=== PATIENT | male | born 1960 ===

== ENCOUNTER 2024-11-11 13:00 | Outpatient (AMB) | payer MEDICARE, SELFPAY ==
[2024-11-11 13:14] VITALS: BP 111/69; PULSE 54; RESP 16; TEMP 36.6; O2SAT 97; BMI 35.1
--- NOTE | 2024-11-11 13:14 | A.OFFPC_ITS ---
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 Automatic Required: No Accompanied by: Self / Same As Patient Allergies No Known Allergies Allergy (Verified 11/11/24 13:16) Tobacco use date assessed: 11/11/24 Fall risk assessment: No Falls in past year Last assessed Fall Risk: 11/11/24 Dental Screening Dental Screen Date: 11/11/24 Did you have a dental visit in the last 12 months?: Yes Did you have a dental problem in the last 6 months where you did not have access to dental care?: No Was dental information given to patient?: Patient has dentist HPI HPI Comments History of Present Illness Details History of Present Illness The patient is a 64-year-old male presenting for a physical examination and to establish care. Arthritis: - The patient reports significant arthri tis affecting the left elbow and knee, with pain impacting daily activities such as wiping a counter. 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 - Previous imaging suggested moderate ar thritis, and physical therapy was recommended but not yet pursued. Lipoma: - The patient has a history of multiple lipomas, some of which are painful, particularly on the left arm. - He has undergone previous surgical rem oval of lipomas, and there is a family history of the condition. Eczema: - The patient reports itchy forearms, wh ich he suspects may be eczema, and has been advised to use prescribed cream. Chest Pain: - The patient experienced chest pain and tightness, which has improved following a 20-pound weight loss over the past three months. - A previous DOT physical suggested a ca rdiology evaluation, but this has not yet been completed. Obesity: - The patient has a BMI of 35.1, classif chandni him as having class 2 obesity. - He acknowledges the need for dietary c hanges and has been referred to a cargo inspector. Depression: - The patient reports long-standing depr ession, possibly linked to loneliness, and has declined medication in favor of therapy. Benign Prostatic Hyperplasia: - The patient reports nocturia and weak urinary stream, suggestive of benign prostatic hyperplasia. Review of Systems - Musculoskeletal: Reports arthritis-rel ated pain in the left elbow and knee. - Dermatological: Reports itchy forearms , suspected eczema. - Cardiovascular: Reports previous chest pain and tightness, improved with weight loss. - Genitourinary: Reports nocturia and we ak urinary stream. - Psychological: Reports long-standing d epression, possibly linked to loneliness. 10-point ROS reviewed and negative excep t as noted in HPI Past Medical History - Arthritis: Significant arthritis affec ting the left elbow and knee. - Lipoma: History of multiple lipomas, s ome painful, with previous surgical removal. - Eczema: Reports itchy forearms, suspec grant eczema. - Depression: Long-standing depression, possibly linked to loneliness. Health Maintenance - Colonoscopy referral for colorectal ca ncer screening. - Manager Long Term Care referral for dietary gomez gement and obesity. - Behavioral health referral for depress ion management. Physical Exam General: Well-appearing, in no acute distress. Vital signs: Blood pressure looks good. Pulse looks good. HEENT: Normocephalic, atraumatic. PERRLA, EOMI. Conjunctiva clear, sclera anicteric. Oropharynx clear, mucous membranes moist. TMs intact bilaterally. Neck: Supple, no lymphadenopathy, no thyromegaly, no JVD or carotid bruits. Cardiovascular: RRR, normal S1/S2, no murmurs, rubs, or gallops. Peripheral pulses 2+ and symmetric. No edema. Respiratory: Lungs clear to auscultation bilaterally, no wheezes, rales, or rhonchi. Normal effort. Abdomen: Soft, non-tender, non-distended. Normoactive bowel sounds. No hepatosplenomegaly, no masses. MSK: Full range of motion, no joint swelling or deformity. Normal gait. Pain in left elbow, moderate arthritis suspected. Skin: Warm, dry, intact. No rashes, lesions, or pallor. Eczema noted on left arm. Multiple lipomas present, some painful. Neuro: Alert and oriented x3. Cranial nerves II-XII intact. Strength 5/5 throughout. Sensation intact. Reflexes 2+ symmetric. Normal coordination and gait. Psych: Appropriate mood and affect. Normal judgment and insight. Reports long- term depression, possibly due to loneliness. Plan 1. Arthritis - Referral to physical therapy for manag ement of arthritis-related pain in the left elbow and knee. 2. Lipoma - Referral to general surgery for evalua tion and potential removal of painful lipomas. 3. Eczema - Prescription of topical cream for gomez gement of eczema on the forearms. 4. Chest Pain - Electrocardiogram ordered to assess ca rdiac function due to previous chest pain and tightness. 5. Obesity - Referral to a cargo inspector for dietary management and weight loss strategies. 6. Depression - Referral to behavioral health for ther apy to address long-standing depression. 7. Benign Prostatic Hyperplasia - Laboratory tests ordered to evaluate u rinary symptoms suggestive of benign prostatic hyperplasia. Discussion Notes During the visit, I discussed with the patient the importance of addressing his arthritis through physical therapy and the potential need for surgical evaluation of his painful lipomas. We also talked about the necessity of managing his obesity with the help of a cargo inspector and addressing his depression through behavioral health services. I emphasized the importance of following up on his chest pain with an electrocardiogram and considering further evaluation for his urinary symptoms. The patient was informed about the colonoscopy referral for colorectal cancer screening and the need for regular health maintenance checks. Patient was informed and verbally consented to the use of an ambient scribe for clinic note documentation during this visit. Patient Instructions - Follow up with physical therapy for ar thritis management. - Attend the scheduled appointment with the general surgeon for lipoma evaluation. - Use the prescribed cream for eczema as directed. - Complete the electrocardiogram as orde red to assess heart health. - Meet with the cargo inspector to discuss dietary changes for weight management. - Engage with behavioral health services for support with depression. - Follow up on laboratory tests for urin martha symptoms. - Attend the colonoscopy appointment for colorectal cancer screening. [facility] Medical History (Updated 11/11/24 @ 13:47 by Quinten Tirado MD) Eczema Pain Lipoma Family History (Updated 11/11/24 @ 13:18 by Ken Vela MA) Father No problems noted. Mother Heart problem Social History Housing: House Alcohol intake: current Alcohol intake frequency: holidays/special occasions only Patient Tobacco Use Status: Never used Tobacco service: No Current occupational status: employed and retired Cognitive needs: No Hearing needs: No Vision needs: Yes (reading ) Questionnaire PHQ-9 Over the last 2 weeks, how often have you been bothered by any of the following problems? 1. Little interest or pleasure in doing things: several days 2. Feeling down, depressed, or hopeless: more than half the days 3. Trouble falling or staying asleep, or sleeping too much: not at all 4. Feeling tired or having little energy: nearly every day 5. Poor appetite or overeating: nearly every day 6. Feeling bad about yourself - or that you are a failure or have let yourself or your family down: more than half the days 7. Trouble concentrating on things, such as reading the newspaper or watching television: several days 8. Moving or speaking so slowly that other people could have noticed. Or the opposite - being so fidgety or restless that you have been moving around a lot more than usual: not at all 9. Thoughts that you would be better off or of hurting yourself in some way: several days Total score: 13 Source: Developed by Drs. Cipriano Bragg, Nikkie Hadley, Heath Shah and colleagues, with an educational laura from [employer]. Thrive Questionnaire Date Thrive assessed: 11/08/24 I am a: Patient What is your living situation today?: I have a place to live, but I am worried about losing it in the future Within the past 12 months, did the food you bought not last and you didn't have the money to get more?: Sometimes True Within the past 12 months, did you worry whether your food would run out before you got money to buy more?: Often true Do you have trouble paying for medicines?: Yes Do you have trouble getting transportation to medical appointments?: No Do you have trouble paying your heating and electricity bill?: Yes Do you have trouble taking care of your child, family member or friend?: Yes Do you have trouble with day-to-day activities such as bathing, preparing meals, shopping, managing finances, etc.?: Yes Are you currently unemployed and looking for a job?: I choose not to answer this question Are you interested in more education?: No Please select the resources that you would like help with: Food, Paying for medicine and Utilities Currently or been in a relationship where the following occur: No concerns reported THRIVE Score: 4 AUDIT C Alcohol Use Questionnaire (AUDIT-C) 1. How often do you have a drink containing alcohol?: Never 2. How many drinks containing alcohol do you have on a typical day when you are drinking?: 1 or 2 3. How often do you have six or more drinks on one occasion?: Never Total Score: 0 WILFRIDO-7 AMB Questionnaire WILFRIDO-7 Feeling nervous, anxious, or on edge: 2 = More than half the days Not being able to stop or control worryin = More than half the days Worrying too much about different things: 2 = More than half the days Trouble relaxin = More than half the days Being so restless that it is hard to sit still: 2 = More than half the days Becoming easily annoyed or irritable: 0 = Not at all Feeling afraid as if something awful might happen: 1 = Several days Total WILFRIDO-7 score (0-4 normal; 5-9 mild; 10-14 moderate; 15-21 severe): 11 Source: Developed by Drs. Cipriano Bragg, Nikkie Hadley, Heath Shah and colleagues, with an educational laura from [employer]. Physical exam (Primary Care) Vital Signs: Last Vital Signs Resp 16 11/11/24 13:14 BMI result Body Mass Index 35.1 Thrive Assessment: Date of Thrive Assessment Date Thrive assessed 11/08/24 11/08/24 12:15 Currently or been in a relationship where the following occur: No concerns reported Coding Level of Care Code New Pt Level 3 (99509) Diagnoses Encounter to establish care Z76.89 Encounter for screening, unspecified Z13.9 Counseling, unspecified Z71.9 Class 2 obesity E66.812 Adjustment disorder with depressed mood F43.21 Lipoma D17.9 Pain R52 Eczema L30.9 Screening for diabetes mellitus Z13.1 Screening for lipoid disorders Z13.220 Screening for depression 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.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 Hypertension screen Z13.6 Screening for HIV (human immunodeficiency virus) Z11.4 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 Arthritis of left elbow M19.022 Difficulty urinating R39.198 Chest pain R07.9 Assessment & Plan Assessment & Plan (1) Encounter to establish care: Code(s): Z76.89 - Persons encountering health services in other specified circumstances (2) Encounter for screening, unspecified: Code(s): Z13.9 - Encounter for screening, unspecified (3) Counseling, unspecified: Code(s): Z71.9 - Counseling, unspecified (4) Class 2 obesity: Code(s): E66.812 - Obesity, class 2 (5) Adjustment disorder with depressed mood: Code(s): F43.21 - Adjustment disorder with depressed mood (6) Lipoma: Code(s): D17.9 - Benign lipomatous neoplasm, unspecified Category: Medical (7) Pain: Code(s): R52 - Pain, unspecified Category: Medical (8) Eczema: Code(s): L30.9 - Dermatitis, unspecified Category: Medical (9) Screening for diabetes mellitus: Code(s): Z13.1 - Encounter for screening for diabetes mellitus (10) Screening for lipoid disorders: Code(s): Z13.220 - Encounter for screening for lipoid disorders (11) Screening for depression: Code(s): Z13.31 - Encounter for screening for depression (12) Congenital melanocytic nevus: Code(s): D22.9 - Melanocytic nevi, unspecified (13) Hypertension screen: Code(s): Z13.6 - Encounter for screening for cardiovascular disorders (14) Screening for HIV (human immunodeficiency virus): Code(s): Z11.4 - Encounter for screening for human immunodeficiency virus [HIV] (15) Zhou hemangioma: Code(s): D18.01 - Hemangioma of skin and subcutaneous tissue (16) Arthritis of left elbow: Code(s): M19.022 - Primary osteoarthritis, left elbow (17) Difficulty urinating: Code(s): R39.198 - Other difficulties with micturition (18) Chest pain: Code(s): R07.9 - Chest pain, unspecified Plan Orders: Orders Comprehensive Met. Panel Today Z13.9 - Encounter for screening, unspecified, Z71.9 - Counseling, unspecified, Z76.89 - Persons encountering health services in other specified circumstances Hemoglobin A1c Today Z13.9 - Encounter for screening, unspecified, Z71.9 - Counseling, unspecified, Z76.89 - Persons encountering health services in other specified circumstances Hepatitis C Antibody Today Z13.9 - Encounter for screening, unspecified, Z71.9 - Counseling, unspecified, Z76.89 - Persons encountering health services in other specified circumstances Syphilis Screen Today Z13.9 - Encounter for screening, unspecified, Z71.9 - Counseling, unspecified, Z76.89 - Persons encountering health services in other specified circumstances Complete Blood Count Auto Diff Today Z13.9 - Encounter for screening, unspecified, Z71.9 - Counseling, unspecified, Z76.89 - Persons encountering health services in other specified circumstances Hepatitis B Surface Antibody Today Z13.9 - Encounter for screening, unspecified, Z71.9 - Counseling, unspecified, Z76.89 - Persons encountering health services in other specified circumstances Hepatitis B Surface Antigen Today Z13.9 - Encounter for screening, unspecified, Z71.9 - Counseling, unspecified, Z76.89 - Persons encountering health services in other specified circumstances HIV Ab/Ag Today Z13.9 - Encounter for screening, unspecified, Z71.9 - Counseling, unspecified, Z76.89 - Persons encountering health services in other specified circumstances Lipid Panel Today Z13.9 - Encounter for screening, unspecified, Z71.9 - Counseling, unspecified, Z76.89 - Persons encountering health services in other specified circumstances Magnesium Today Z13.9 - Encounter for screening, unspecified, Z71.9 - Counseling, unspecified, Z76.89 - Persons encountering health services in other specified circumstances UA CC w/rflx Micro + Cult Today Z13.9 - Encounter for screening, unspecified, Z71.9 - Counseling, unspecified, Z76.89 - Persons encountering health services i n other specified circumstances Vitamin B12 and Folate Today Z13.9 - Encounter for screening, unspecified, Z71.9 - Counseling, unspecified, Z76.89 - Persons encountering health services in other specified circumstances Vitamin D 1,25 dihydroxy Today Z13.9 - Encounter for screening, unspecified, Z71.9 - Counseling, unspecified, Z76.89 - Persons encountering health services in other specified circumstances ECG 12 lead EKG Today R07.9 - Chest pain, unspecified US Extremity Nonvas Limited LT Today D17.9 - Benign lipomatous neoplasm, unspecified, R52 - Pain, unspecified Referrals Open Access Screening Colonoscopy Referral Z12.11 - Encounter for screening for malignant neoplasm of colon, Z12.12 - Encounter for screening for malignant neoplasm of rectum Nurse Navigator Referral E66.812 - Obesity, class 2, F43.21 - Adjustment disorder with depressed mood Behavioral Health Referral F43.21 - Adjustment disorder with depressed mood General Surgery Referral D17.9 - Benign lipomatous neoplasm, unspecified, R52 - Pain, unspecified Medications: New triamcinolone acetonide 0.1% 1 appl topical BID 80 grams 0RF L30.9 - Dermatitis, unspecified
--- OUTSIDE RECORDS SUMMARY | 2024-11-11 14:29 | XMS_ITS | Clinical Summary ---
Author Organization [address] Address [address] [place] [phone] Phone Care Team Providers Care Yarder Boss Name Role Phone Marquis Russell MD Primary Care Provider [phone] Social History Tobacco Use Types Packs/Day Years Used Date Smoking Tobacco: Never Assessed Sex and Gender Information Value Date Recorded Sex Assigned at Not on file Legal Sex Male 6:31 PM EST Gender Identity Not on file Sexual Orientation Not on file Plan of Treatment Health Maintenance Due Date Last Done Comments HIV screening 1971 Hepatitis C screening 01/10/1976 Tetanus adult (Td q 10,TDAP once) 1978 Lipid disorder screening 1998 Colon cancer screening, Colonoscopy 2003 Diabetes screening 2003 Pneumococcal Vaccine (50+ ye ars) (1 of 1 - PCV) 01/10/2008 Shingles vaccine (Shingrix) (1 of 2 - Shingrix (RZV) 2 Dose Standard Series) 01/10/2008 Influenza vaccine 09/10/2024 Covid-19 vaccine series (2 - season) 2024 06/17/2020 RSV Immunization (1 - 1-dose 75+ series) 2033 Meningococcal B Vaccine Aged Out No l onger eligible based on patient's age to complete this topic Meningococcal Vaccine Aged Out No siena maryam eligible based on patient's age to complete this topic Insurance [employer] [address] [place] [address] [address] [id number] Care Teams Yarder Boss Relationship Specialty Start Date End Date Marquis Russell MD [address] [place] [phone] PCP - General 06/29/15
--- OUTSIDE RECORDS SUMMARY | 2024-11-11 14:29 | XMS_ITS | Clinical Summary ---
Author Organization [facility] Address [address] [place] [address] Care Team Providers Care Decatizer Name Role Phone Pcp, No Unavailable Unavailable Percy Messer Primary Care Provider Allergies No known active allergies Medications ibuprofen (MOTRIN) 600 MG tablet Take 1 tablet (600 mg total) by mouth 4 times daily (every 6 hours) as needed for mild pain or moderate pain. With food 20 tablet 01/04/2022 Active Active Problems Problem Noted Date Diagnosed Date Complex tear of medial menis cus, current injury, left knee, sequela 03/16/2018 Immunizations Immunization Administration Dates Next Due Covid-19 Adenovirus Vaccine - Jolene 06/17/2020 Family History Medical History Relation Name Comments Heart disease Mother Relation Name Status Comments Father Mother Alive Social History Tobacco Use Types Packs/Day Years Used Date Smoking Tobacco: Never Smokeless Tobacco: Never Tobacco Cessation:Counseling Given: Not Answered Alcohol Use Standard Drinks/Week Comments Yes 0 (1 standard drink = 0.6 oz pur e alcohol) Sex and Gender Information Value Date Recorded Sex Assigned at Male 01/27/2023 1:09 PM EST Legal Sex Male 5:17 PM EDT Gender Identity Male 01/27/2023 1:09 PM EST Sexual Orientation Heterosexual (straight) 01/27 1:09 PM EST Last Filed Vital Signs Vital Sign Reading Time Taken Comments Blood Pressure 125/84 01/27/2023 12:18 PM EST Pulse 70 01/27/2023 12:18 PM EST Temperature 36.9 C (98.5 F) 01/27/2023 12:18 PM EST Respiratory Rate 16 01/27/2023 12:18 PM EST Oxygen Saturation 98% 01/27/2023 12:18 PM EST Inhaled Oxygen Concentration - - Weight 120 kg (265 lb) 01/27/2023 12:18 PM EST Height 182.9 cm (6') 01/27/2023 12:18 PM EST Body Mass Index 35.94 01/27/2023 12:18 PM EST Plan of Treatment Health Maintenance Due Date Last Done Comments Advance Care Planning 1960 Hepatitis C Virus Screening 1960 DTaP/Tdap/Td Vaccines (1 - Tdap) 1977 Colonoscopy 2003 Pneumococcal Vaccines 50+ (1 of 1 - PCV) 01/10/2008 Zoster (Shingles) Vaccine (1 of 2) 01/10/2008 Influenza Vaccine 09/10/2024 COVID-19 Vaccine (2 - 2024-2 6 season) 2024 06/17/2020 RSV Vaccine 60 years and old er and Patients (1 - 1-dose 75+ series) 2033 Hepatitis B Vaccines Aged Out No long er eligible based on patient's age to complete this topic Insurance MEDICARE PART A [facility] TPL (AUTO/LIABILITY) [employer] MGD MEDICARE [facility] WORKER'S COMP ONE CALL MEDICAL ONE CALL MEDICAL Care Teams Decatizer Relationship Specialty Start Date End Date Percy Messer PA PCP - General Internal Medicine 09/19/16 Pcp, No General Medicine 07/12/16
--- OUTSIDE RECORDS SUMMARY | 2024-11-11 14:29 | XMS_ITS | Encounter Summary ---
Author Organization [facility] Care Team Providers Care Seed Analysis Laboratory Assistant Name Role Phone Marquis Russell MD Primary Care Provider [phone] Encounter Details Date Type Department Care Team (Late st Contact Info) Description 07/10/2015 Abstract [facility] Primary Care [place] [address] [facility], [address] [place] [address] Provider, Historical . Social History Tobacco Use Types Packs/Day Years Used Date Smoking Tobacco: Never Assessed Sex and Gender Information Value Date Recorded Sex Assigned at Not on file Legal Sex Male 6:31 PM EST Gender Identity Not on file Sexual Orientation Not on file documented as of this encounter Plan of Treatment Not on file documented as of this encounter Visit Diagnoses Not on filedocumented in this encounter Care Teams Seed Analysis Laboratory Assistant Relationship Specialty Start Date End Date Marquis Russell MD [address] [place] [phone] PCP - General 06/29/15 documented as of this encounter
--- OUTSIDE RECORDS SUMMARY | 2024-11-11 14:29 | XMS_ITS | Encounter Summary ---
Author Organization [facility] Address [address] [place] [address] Care Team Providers Care Bridge Gang Worker Name Role Phone Pcp, No Unavailable Unavailable Percy Messer Primary Care Provider [phone] Encounter Details Date Type Department Care Team (Late st Contact Info) Description 01/26/2018 Scanned Document [address] [phone] Percy Messer PA [address] [place] [address] Social History Tobacco Use Types Packs/Day Years Used Date Smoking Tobacco: Never Assessed Sex and Gender Information Value Date Recorded Sex Assigned at Male 01/27/2023 1:09 PM EST Legal Sex Male 5:17 PM EDT Gender Identity Male 01/27/2023 1:09 PM EST Sexual Orientation Heterosexual (straight) 01/27 1:09 PM EST documented as of this encounter Plan of Treatment Not on file documented as of this encounter Visit Diagnoses Not on filedocumented in this encounter Care Teams Bridge Gang Worker Relationship Specialty Start Date End Date Percy Messer PA PCP - General Internal Medicine 09/19/16 Pcp, No General Medicine 07/12/16 documented as of this encounter
--- OUTSIDE RECORDS SUMMARY | 2024-11-11 14:29 | XMS_ITS ---
Author Name [facility] Organization Unknown History of Medication Use Medication Directions Dispensed Refills Start Date End Date Stat us ibuprofen (MOTRIN) 600 MG tablet Take 1 tablet (600 mg total) by mouth 4 times daily (every 6 hours) as needed for mild pain or moderate pain. With food 01/04/2022 active Problems Problem Status Onset Date Problem Type Date of Resoluti on Source Other chest pain active EncounterDiagnosisAct [facility] Complex tear of medial meniscus, current injury, left knee, sequela active 2018-03-16 ProblemAct [facility] Immunizations Vaccine Date Source Lot Number Status Covid-19 Adenovirus Vaccine - Jolene 06/17/2020 [facility] [id number] completed Encounters Encounter Type Encounter Reason Primary Diagnosis Location Date Ambulatory [facility] 09/05/2024 Ambulatory [facility] 08/25/2024 Ambulatory [facility] 08/24/2024 Ambulatory [facility] 08/24/2024 Ambulatory [facility] 08/24/2024 Ambulatory [facility] 08/24/2024 Ambulatory [facility] 08/19/2024 Ambulatory [facility] 08/18/2024 Ambulatory [facility] 08/18/2024 Ambulatory [facility] 08/18/2024 Ambulatory [facility] 11/13/2023 Emergency Unspecified sprain of left elbow, initial encounter Unspecified sprain of left elbow, initial encounter [facility] 01/27/2023 Emergency Strain of left Achilles tendon, initial encounter [facility] 01/04/2022 Care Team Organization Name Specialty Phone Email Start Date End Da te [facility] 06/23/2024 025 [facility] 01/04/2022 [facility] 01/04/2022 01/05/20 22
== END 2024-11-11 13:51 | disposition home or self-care (01) ==
LOC: HO.HMCFMS 13:00
PROVIDERS: Visit Provider Student in an Organized Health Care Education/Training Program
DX: E66.812 Obesity, class 2 (principal); F43.21 Adjustment disorder with depressed mood; D17.9 Benign lipomatous neoplasm, unspecified; R52 Pain, unspecified; L30.9 Dermatitis, unspecified; D22.9 Melanocytic nevi, unspecified; D18.01 Hemangioma of skin and subcutaneous tissue; M19.022 Primary osteoarthritis, left elbow; R39.198 Other difficulties with micturition; R07.9 Chest pain, unspecified

== ENCOUNTER 2024-11-11 13:00 | Outpatient (REF) | payer MEDICARE, SELFPAY ==
[2024-11-11 17:42] LABS: MANUAL DIFF FLAG NO
[2024-11-11 17:48] LABS: Hematocrit 42.6 % (42.0-52.0); Hemoglobin 14.8 g/dl (14.0-18.0); Imm Gran Abs Auto 0.03 X10*3/uL (0.00-0.03); Imm Gran Pct Auto 0.4 % (0.0-0.4); Lymphocytes Absolute Auto 2.5 X10*3/uL (1.2-4.9); Mean Corpuscular HGB Conc 34.7 g/dl (31.0-36.0); Mean Corpuscular Hemoglobin 28.8 pg (27.0-33.0); Mean Corpuscular Volume 83.0 fL (80.0-98.0); NRBC Abs Auto 0.000 X10*3/uL (0.0-0.012); NRBC Pct Auto 0.0 /100WBC (0.0-0.2); Platelet Count 284 X10*3/uL (160-400); Red Blood Count 5.13 X10*6/uL (4.60-5.80); White Blood Count 8.0 X10*3/uL (4.8-10.8)
[2024-11-11 18:14] LABS: Alanine Aminotransferase 26 U/L (0-40); Albumin Level 4.6 g/dL (3.5-5.0); Alkaline Phosphatase 82 U/L (39-117); Anion Gap 12 (12-20); Appearance Urine Clear; Aspartate Amino Transferase 23 U/L (5-37); Blood Urea Nitrogen 25 mg/dL (9-16); Calcium 9.4 mg/dL (8.4-10.2); Carbon Dioxide 23 mmol/L (22-29); Chloride 109 mmol/L (96-108); Cholesterol 183 mg/dL (<200); Estimated Glomerular Filt Rate > 60; Glucose Urine UA Negative (Negative); HDL Cholesterol 38 mg/dL (>40); Magnesium 2.3 mg/dL (1.6-2.6); PH 5.5 (5.0-9.0); Potassium 4.2 mmol/L (3.3-5.1); Sodium 140 mmol/L (135-145); Specific Gravity - Urine 1.020 (1.005-1.025); Total Protein 7.1 g/dL (6.5-8.0); Triglycerides 200 mg/dL (<150)
[2024-11-11 18:34] LABS: Folate 10.5 ng/mL (> or = 4.0); Vitamin B12 > 2000 pg/mL (200-900)
[2024-11-12 05:33] LABS: HBS Num1 47.78 mIU/mL (0-7.99); HBsAGNum1 0.42 S/CO (0.00-0.99); HIV Num 1 0.06 S/CO (0.00-0.99); Hepatitis B Surface Antigen Negative (Negative); ~HepC Num1 0.29 S/CO (0.00-0.79); ~Hepatitis B Surface Antibody REACTIVE (Nonreactive); ~Hepatitis C Antibody Nonreactive (Nonreactive)
[2024-11-12 05:36] LABS: Syphilis Screen Nonreactive (Nonreactive)
[2024-11-16 17:32] LABS: VITAMIN D (1,25 OH) D3 49 pg/mL; Vit D (1,25-Dihydroxy) Total 49 pg/mL (18-72); Vitamin D (1,25 OH) D2 <8 pg/mL
== END 2024-11-11 13:01 | disposition home or self-care (01) ==
LOC: HO.HKASLDS 13:00
PROVIDERS: PCP Student in an Organized Health Care Education/Training Program; Visit Provider Student in an Organized Health Care Education/Training Program
DX: E66.812 Obesity, class 2 (principal); L30.9 Dermatitis, unspecified; F43.21 Adjustment disorder with depressed mood; R07.9 Chest pain, unspecified; D17.9 Benign lipomatous neoplasm, unspecified; M17.12 Unilateral primary osteoarthritis, left knee; M19.022 Primary osteoarthritis, left elbow; N40.1 Benign prostatic hyperplasia with lower urinary tract symptoms; R39.12 Poor urinary stream; R35.1 Nocturia; D18.01 Hemangioma of skin and subcutaneous tissue; Z76.89 Persons encountering health services in other specified circumstances; Z71.89 Other specified counseling; Z13.31 Encounter for screening for depression; Z13.220 Encounter for screening for lipoid disorders; Z13.1 Encounter for screening for diabetes mellitus; Z68.35 Body mass index [BMI] 35.0-35.9, adult
CPT/HCPCS: 36415; 80053; 80061; 81003; 82607; 82652; 82746; 83036; 83735; 85025; 86706; 86780; 86803; 87340; 87389; 96127; 99202

== ENCOUNTER 2024-11-25 09:13 | Outpatient (AMB) | payer MEDICARE, SELFPAY ==
[2024-11-25 09:25] VITALS: BP 111/62; PULSE 55; RESP 16; TEMP 36.4; O2SAT 96; BMI 35.3
--- NOTE | 2024-11-25 09:25 | A.OFFPC_ITS ---
Vital Signs 11/25/24 09:25 Height 6 ft 1.23 in Weight 269 lb 4 oz BMI 35.3 BP 111/62 Blood Pressure Location Rt brachial Position Sitting Respiration 16 Pulse 55 Pulse Source Pulse Oximeter Temp 97.5 F Temp Source Oral Pulse Oximetry (%) 96 Oxygen Delivery Method Room Air Intake Visit Reasons: 2 wk f/u Condominium Property Manager Required: No Accompanied by: Self / Same As Patient Allergies No Known Allergies Allergy (Verified 11/25/24 09:25) Tobacco use date assessed: 11/25/24 Fall risk assessment: No Falls in past year Last assessed Fall Risk: 11/11/24 Dental Screening Dental Screen Date: 11/25/24 Did you have a dental visit in the last 12 months?: Yes Did you have a dental problem in the last 6 months where you did not have access to dental care?: No Was dental information given to patient?: Patient has dentist HPI HPI Comments History of Present Illness Details Consent Patient was informed and verbally consented to the use of an ambient scribe for clinic note documentation during this visit. History of Present Illness The patient is a 64-year-old male presenting with management of lipomas, lab results, and addressing respiratory symptoms such as wheezing. Lipoma: - The patient has a history of multiple lipomas, with approximately 10 to 12 occurrences. - Previous surgical intervention by a pl astic surgeon resulted in minimal scarring, whereas an orthopedic surgeon left a significant scar. - The patient prefers plastic surgery fo r future interventions due to better cosmetic outcomes. Hyperlipidemia: - The patient has elevated triglycerides at 200 mg/dL and LDL cholesterol at 105 mg/dL. - Lifestyle factors include consumption of sweets, cheese, and eggs, which may contribute to lipid levels. - The patient is aware of the need for l ifestyle modifications to manage lipid levels. 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 - There is a history of cannabis use and no cigarette smoking, but past alcohol and drug use is noted. - An albuterol inhaler has been prescrib ed for symptomatic relief, and pulmonary function testing is planned. Low testosterone: - The patient suspects low testosterone due to fatigue and low libido, with previous testosterone injections administered. - The patient expresses reluctance to co ntinue testosterone therapy due to fear of side effects. Depression: - The patient has a history of depressio n, possibly linked to past substance use and lifestyle factors. - The patient is hesitant about medicati on due to concerns about side effects, but options like Wellbutrin were discussed. Review of Systems - Respiratory: Reports wheezing and dysp max on exertion. Denies cough or he moptysis. - Endocrine: Reports fatigue and low qian lizz, suggesting possible low testosterone. - Psychiatric: Reports depression and lo w mood. Denies current suicidal ideation. 10-point ROS reviewed and negative excep t as noted in HPI Past Medical History - History of multiple lipomas with surgi brenden interventions. - Previous diagnosis of hyperlipidemia. - History of depression, possibly linked to past substance use. Health Maintenance - Recommended colonoscopy for colorectal cancer screening. - Advised lifestyle modifications to man age hyperlipidemia, including dietary changes. Physical Exam General: Well-appearing, in no acute distress. Vital signs: Within normal limits. HEENT: Normocephalic, atraumatic. PERRLA, EOMI. Conjunctiva clear, sclera anicteric. Oropharynx clear, mucous membranes moist. TMs intact bilaterally. Neck: Supple, no lymphadenopathy, no thyromegaly, no JVD or carotid bruits. Cardiovascular: RRR, normal S1/S2, no murmurs, rubs, or gallops. Peripheral pulses 2+ and symmetric. No edema. Respiratory: Lungs clear to auscultation bilaterally, occasional wheezing noted. Normal effort. Abdomen: Soft, non-tender, non-distended. Normoactive bowel sounds. No hepa tosplenomegaly, no masses. MSK: Full range of motion, no joint swelling or deformity. Normal gait. Skin: Warm, dry, intact. No rashes, lesions, or pallor. Scattered lipomas over bilateral arms and back Neuro: Alert and oriented x3. Cranial nerves II-XII intact. Strength 5/5 throughout. Sensation intact. Reflexes 2+ symmetric. Normal coordination and gait. Psych: Appropriate mood and affect. Normal judgment and insight. Low libido and history of depression noted. Plan 1. Lipoma - Referral to plastic surgery for evalua tion and potential removal of lipomas due to preference for cosmetic outcomes. 2. Hyperlipidemia - Advised dietary modifications to reduc e intake of sweets, cheese, and eggs to manage lipid levels. - Plan to repeat lipid panel in six vilma hs to assess progress. 3. Wheezing - Prescribed albuterol inhaler for sympt omatic relief of wheezing. - Scheduled pulmonary function testing t o evaluate lung function. 4. Low Testosterone - Discussed potential testing for testos terone levels due to symptoms of fatigue and low libido. 5. Depression - Discussed potential use of Wellbutrin to address low energy and libido, with consideration of patient's concerns about side effects. Discussion Notes During the visit, we discussed the management of lipomas with a preference for plastic surgery due to cosmetic outcomes. We reviewed the patient's hyperlipidemia and the importance of dietary changes to manage lipid levels. The patient was advised on the use of an albuterol inhaler for wheezing and the plan for pulmonary function testing. We also discussed the possibility of low testosterone and the potential benefits of testing. For depression, we explored medication options like Wellbutrin, considering the patient's concerns about side effects. Follow-up was planned to reassess these issues and discuss further management options. Patient Instructions - Use the albuterol inhaler as needed fo r wheezing, following the instructions provided. - Make dietary changes to reduce sweets, cheese, and eggs to help manage cholesterol levels. - Follow up with the plastic surgeon for evaluation of lipomas. - Schedule and complete the recommended colonoscopy. - Consider discussing Wellbutrin with [facility] doctor if interested in addressing depression and low libido. Medical Decision Making In evaluating the patient's conditions, I considered the cosmetic benefits of plastic surgery for lipoma removal. The patient's hyperlipidemia is likely influenced by dietary habits, and lifestyle modifications were recommended. Wheezing was addressed with an albuterol inhaler and planned pulmonary function testing to assess lung function. The possibility of low testosterone was considered due to symptoms of fatigue and low libido, and testing was discussed. For depression, Wellbutrin was considered as a treatment option, balancing the patient's concerns about side effects with potential benefits. Total time spent caring for the patient today was 30 minutes. This includes time spent before the visit reviewing the chart, time spent documenting, and time spent reviewing laboratory results, diagnostic imaging, medications, performing a medically necessary evaluation, counseling on diagnoses, care coordination. [facility] Medical History (Updated 11/25/24 @ 10:18 by Quinten Tirado MD) Low libido Fatigue Shortness of breath on exertion Wheezing History of marijuana use Eczema Pain Lipoma Family History Father No problems noted. Mother Heart problem Social History Housing: House Alcohol intake: current Alcohol intake frequency: holidays/special occasions only Patient Tobacco Use Status: Never used Tobacco service: No Current occupational status: employed and retired Cognitive needs: No Hearing needs: No Vision needs: Yes (reading ) Questionnaire PHQ-9 Over the last 2 weeks, how often have you been bothered by any of the following problems? 1. Little interest or pleasure in doing things: several days 2. Feeling down, depressed, or hopeless: more than half the days 3. Trouble falling or staying asleep, or sleeping too much: not at all 4. Feeling tired or having little energy: nearly every day 5. Poor appetite or overeating: nearly every day 6. Feeling bad about yourself - or that you are a failure or have let yourself or your family down: more than half the days 7. Trouble concentrating on things, such as reading the newspaper or watching television: several days 8. Moving or speaking so slowly that other people could have noticed. Or the opposite - being so fidgety or restless that you have been moving around a lot more than usual: not at all 9. Thoughts that you would be better off or of hurting yourself in some way: several days Total score: 13 Source: Developed by Drs. Cipriano Bragg, Nikkie Hadley, Heath Shah and colleagues, with an educational laura from [employer] Thrive Questionnaire Date Thrive assessed: 11/25/24 I am a: Patient What is your living situation today?: I have a place to live, but I am worried about losing it in the future Within the past 12 months, did the food you bought not last and you didn't have the money to get more?: Sometimes True Within the past 12 months, did you worry whether your food would run out before you got money to buy more?: Often true Do you have trouble paying for medicines?: Yes Do you have trouble getting transportation to medical appointments?: No Do you have trouble paying your heating and electricity bill?: Yes Do you have trouble taking care of your child, family member or friend?: Yes Do you have trouble with day-to-day activities such as bathing, preparing meals, shopping, managing finances, etc.?: Yes Are you currently unemployed and looking for a job?: I choose not to answer this question Are you interested in more education?: No Currently or been in a relationship where the following occur: No concerns reported THRIVE Score: 4 AUDIT C Alcohol Use Questionnaire (AUDIT-C) 1. How often do you have a drink containing alcohol?: Never 2. How many drinks containing alcohol do you have on a typical day when you are drinking?: 1 or 2 3. How often do you have six or more drinks on one occasion?: Never Total Score: 0 WILFRIDO-7 AMB Questionnaire WILFRIDO-7 Date WILFRIDO - 7 assessed: 11/25/24 Feeling nervous, anxious, or on edge: 2 = More than half the days Not being able to stop or control worryin = More than half the days Worrying too much about different things: 2 = More than half the days Trouble relaxin = More than half the days Being so restless that it is hard to sit still: 2 = More than half the days Becoming easily annoyed or irritable: 0 = Not at all Feeling afraid as if something awful might happen: 1 = Several days Total WILFRIDO-7 score (0-4 normal; 5-9 mild; 10-14 moderate; 15-21 severe): 11 Source: Developed by Drs. Cipriano Bragg, Nikkie Hadley, Heath Shah and colleagues, with an educational laura from [employer] Physical exam (Primary Care) Vital Signs: Last Vital Signs Temp 97.5 F 11/25/24 09:25 Pulse 55 11/25/24 09:25 Resp 16 11/25/24 09:25 BP 111/62 11/25/24 09:25 Pulse Ox 96 11/25/24 09:25 Oxygen Delivery Method Room Air 11/25/24 09:25 BMI result Body Mass Index 35.3 Tobacco/Smoking Status: Tobacco use Status Tobacco use date assessed 11/25/24 11/25/24 09:33 Patient Tobacco Use Status Never used Tobacco 11/25/24 09:25 PHQ-9: PHQ-9 Score PHQ-9: Total score 13 11/25/24 09:33 Thrive Assessment: Date of Thrive Assessment Date Thrive assessed 11/25/24 11/25/24 09:33 Currently or been in a relationship where the following occur: No concerns reported Coding Level of Care Code Est Pt Level 4 (58296) Diagnoses Shortness of breath on exertion R06.02 Wheezing R06.2 History of marijuana use F12.91 Lipoma D17.9 Hyperlipidemia E78.5 Low testosterone R79.89 Depression F32.A Assessment & Plan Assessment & Plan (1) Shortness of breath on exertion: Code(s): R06.02 - Shortness of breath Category: Medical (2) Wheezing: Code(s): R06.2 - Wheezing Category: Medical (3) 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
--- OUTSIDE RECORDS SUMMARY | 2024-11-25 10:20 | XMS_ITS | Encounter Summary ---
Author Organization [place] [facility] Care Team Providers Care Hot Stick Worker Name Role Phone Marquis Russell MD Primary Care Provider [phone] Encounter Details Date Type Department Care Team (Late st Contact Info) Description 07/10/2015 Abstract [facility] Primary Care [place] [address] [facility], [address] [place] [address] Provider, Historical . Social History Tobacco Use [...] on filedocumented in this encounter Care Teams Hot Stick Worker Relationship Specialty Start Date End Date Marquis Russell MD [address] [place] [phone] PCP - General 06/29/15 documented as of this encounter
--- OUTSIDE RECORDS SUMMARY | 2024-11-25 10:20 | XMS_ITS | Clinical Summary ---
Author Organization [address] Address [address] [place] [phone] Phone Care Team Providers Care Supervisor Assembly Stock Name Role Phone Marquis Russell MD Primary Care Provider [phone] Social History Tobacco Use Types Packs/Day Years [...] topic Insurance [employer] [address] [place] [address] [address] [id number] Care Teams Supervisor Assembly Stock Relationship Specialty Start Date End Date Marquis Russell MD [address] [place] [phone] PCP - General 06/29/15
--- OUTSIDE RECORDS SUMMARY | 2024-11-25 10:20 | XMS_ITS | Clinical Summary ---
Author Organization [facility] Address [address] [place] [address] Care Team Providers Care Parachute Packer Name Role Phone Pcp, No Unavailable Unavailable Percy Messer Primary Care Provider [phone] Allergies No known active allergies Medications ibuprofen [...] 2024-2 6 season) 2024 06/17/2020 RSV Vaccine 50 years and old er and Patients (1 - 1-dose 75+ series) 2033 Hepatitis B Vaccines Aged Out No long er eligible based on patient's age to complete this topic Insurance MEDICARE PART A [facility] T[facility] (AUTO/LIABILITY) [employer] MGD MEDICARE [facility] WORKER'S COMP ONE CALL MEDICAL ONE CALL MEDICAL Care Teams Parachute Packer Relationship Specialty Start Date End Date Percy Messer PA PCP - General Internal Medicine 09/19/16 Pcp, No General Medicine 07/12/16
--- OUTSIDE RECORDS SUMMARY | 2024-11-25 10:20 | XMS_ITS | Encounter Summary ---
Author Organization [facility] Address [address] [place] [address] Care Team Providers Care Nail Cutter Name Role Phone Pcp, No Unavailable Unavailable Percy Messer Primary Care Provider Encounter Details Date Type Department Care Team (Late st Contact Info) Description 01/26/2018 Scanned Document [address] [phone] Percy Messer PA [address] [place] [address] Social History Tobacco Use Types Packs/Day Years [...] on filedocumented in this encounter Care Teams Nail Cutter Relationship Specialty Start Date End Date Percy Messer PA PCP - General Internal Medicine 09/19/16 Pcp, No General Medicine 07/12/16 documented as of this encounter
== END 2024-11-25 10:23 | disposition home or self-care (01) ==
LOC: HO.HMCFMS 09:13
PROVIDERS: PCP Student in an Organized Health Care Education/Training Program; Visit Provider Student in an Organized Health Care Education/Training Program
DX: R06.02 Shortness of breath (principal); R06.2 Wheezing; F12.91 Cannabis use, unspecified, in remission; D17.9 Benign lipomatous neoplasm, unspecified; E78.5 Hyperlipidemia, unspecified; R79.89 Other specified abnormal findings of blood chemistry; F32.A Depression, unspecified

== ENCOUNTER → 2024-11-25 09:13 | Outpatient (BNVA) | payer MEDICARE, SELFPAY | PROVIDERS: Visit Provider Student in an Organized Health Care Education/Training Program | DX: R06.02 Shortness of breath (principal); R06.2 Wheezing; F12.91 Cannabis use, unspecified, in remission; D17.9 Benign lipomatous neoplasm, unspecified; E78.5 Hyperlipidemia, unspecified; R79.89 Other specified abnormal findings of blood chemistry; F32.A Depression, unspecified; Z13.30 Encounter for screening examination for mental health and behavioral disorders, unspecified; Z13.39 Encounter for screening examination for other mental health and behavioral disorders | CPT/HCPCS: 96127; 99212 ==

== ENCOUNTER 2024-11-26 09:16 | Outpatient (REF) | payer MEDICARE, SELFPAY ==
--- OUTSIDE RECORDS SUMMARY | 2024-11-26 10:15 | XMS_ITS | Clinical Summary ---
Author Organization [address] Address [address] [place] [phone] Phone Care Team Providers Care Form Tamping Machine Operator Name Role Phone Marquis Russell MD Primary Care Provider [phone] Social History Tobacco Use Types Packs/Day Years [...] topic Insurance [employer] [address] [place] [address] [address] [id number] Care Teams Form Tamping Machine Operator Relationship Specialty Start Date End Date Marquis Russell MD [address] [place] [phone] PCP - General 06/29/15
--- OUTSIDE RECORDS SUMMARY | 2024-11-26 10:15 | XMS_ITS | Data Portability ---
Author Organization [place] [facility] Address [address] [place] [address] Assessment Encounter Date Assessment Date Assessment LastModified by Organization Details LastModified Time 08/24/2024 08/24/2024 The above findings were discussed in detail with patient today. He has moderate left elbow osteoarthritis. We discussed treatment options briefly which include living with the symptoms nonoperative management and surgical invention. We discussed judicious use of anti-inflammator y medication as well as topical anti-inflammator ies and cryotherapy. Patient is interested in further discussing surgical intervention in the form of arthroscopic surgery. Therefore, a prescription for a LEFT elbow CT scan without contrast was provided. The patient will follow-up upon completion of the CT. Discussion regarding further treatment options pending review of advanced imaging at subsequent visit. Patient verbalized understanding of this plan and was in agreement. All questions were answered to the patient's satisfaction. [email or web address] Not available 08/24/2024 09:09:40 Plan of Treatment Reminders Order Date Submit Date Provider Last Modified By Organization Details Last Modified Time Details Appointments None recorded. Lab None recorded. Referral None recorded. Procedures None recorded. Surgeries None recorded. Imaging XR, elbow, 3 or more view 2024 025 [email or web address] [facility], [address], [address], [place], [address], 16:45:57 CT, elbow, w/o contrast - Left elbow, moderate OA, evaluate joint osteophytes 2024 025 [email or web address] Not available 10:06:45 Medication Orders None recorded. Patient TargetsNo targets recorded. Patient InstructionsNo instructions recorded. Reason for Referral None Reported. Medical Equipment None Reported. Allergies No known drug allergies Medications Not known to be on any medication Vitals Date Recorded Body height Body mass index (BMI) Body weight Provider Name and Address Organization Details Last Updated DateTime 08/24/2024 187.96 cm 34.4 kg/m2 984942.[address] [facility] 08/24/2024 09:20:05 Social History None recorded. Functional Status Question Answer Note LastModified by Organizat ion Details LastModified Time Do you use any illicit or recreational drugs? No [email or web address] Information not available 08/24/2024 Do you or have you ever used any other forms of tobacco or nicotine? No Information not available 08/24/2024 What is your level of alcohol consumption? None [email or web address] Information not available 08/24/2024 Mental Status None recorded. Family History Nothing Reported. Medical History No medical history recorded. Past Encounters Encounter ID Performer Location Encounter Start Date Encounter Closed Date Diagnosis/Indication Diagnosis SNOMED-CT Code Diagnosis ICD10 Code Diagnosis IMO Codes Diagnosis Note [id number] MD KAELA Aguirre [address] [phone] 08/24/2024 08:17:13 08/24/2024 09:07:04 Pain of elbow region 78478701 M25.522 505269 Health Concerns Section Related Observation LastModified by Organization Detai ls LastModified Time None Recorded Concern Status LastModified by Organization Details LastModified Time None Recorded Advance Directives Directive None Recorded Payers Insurance Date Sequence Insurance Name Policy Number Policy Charles Covered Member ID Charles Member ID Guarantor Name 08/18/2024 1 [employer] (PPO) [id number] Delio Kirkpatrick [id number] Delio Kirkpatrick 08/25/2024 1 [employer] (MEDICARE REPLACEMENT/ ADVANTAGE - PPO) [id number] Delio Kirkpatrick [id number] Delio Kirkpatrick Notes Date Note Type Note Provider Name and Address Organization Details Recorded Time 08/24/2024 text/html ROS as noted in the HPI 64-year-old [id number] nt man presenting with left elbow pain for the past 2 years. He has dull pain pain with gripping and pulling. 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 He rates his pain at best 0 out of 10 at worst 8 out of 10. Denies any night symptoms. He has constant pain with activity is not able to dust rub things on the ground light lifting. Adams Vargas MD [address] [place] [address], [phone], [place] [facility] 08/24/2024 09:11:01
--- OUTSIDE RECORDS SUMMARY | 2024-11-26 10:15 | XMS_ITS | Encounter Summary ---
Author Organization [place] [facility] Care Team Providers Care Band Straightener Name Role Phone Marquis Russell MD Primary Care Provider [phone] Encounter Details Date Type Department Care Team (Late st Contact Info) Description 07/10/2015 Abstract [facility] Primary Care [place] [address] [facility], [address] [place] [address] Provider, Historical . Social History Tobacco Use [...] on filedocumented in this encounter Care Teams Band Straightener Relationship Specialty Start Date End Date Marquis Russell MD [address] [place] [phone] PCP - General 06/29/15 documented as of this encounter
[2024-12-03 17:53] LABS: Testosterone, Free 44.5 pg/mL (35.0-155.0)
== END 2024-11-26 09:17 | disposition home or self-care (01) ==
LOC: HO.HKASLDS 09:16
PROVIDERS: PCP Student in an Organized Health Care Education/Training Program; Visit Provider Student in an Organized Health Care Education/Training Program
DX: R53.83 Other fatigue (principal); R68.82 Decreased libido
CPT/HCPCS: 36415; 84146; 84402; 84403

== ENCOUNTER 2024-12-10 08:41 | Outpatient (AMB) | payer MEDICARE, SELFPAY ==
[2024-12-10 08:45] VITALS: BP 112/77; PULSE 88; TEMP 36.9; O2SAT 94; BMI 34.5
--- NOTE | 2024-12-10 08:45 | A.OFFPC_ITS ---
Vital Signs 12/10/24 08:45 Height 6 ft 1.23 in Weight 263 lb BMI 34.5 BP 112/77 Blood Pressure Location Rt brachial Position Sitting Pulse 88 Pulse Source Pulse Oximeter Temp 98.4 F Temp Source Oral Pulse Oximetry (%) 94 Oxygen Delivery Method Room Air Intake Visit Reasons: 2 week follow up Earth Science Technical Officer Required: No Accompanied by: Self / Same As Patient Allergies No Known Allergies Allergy (Verified 12/10/24 08:51) Medication List - Last Reconciled 12/10/24 by Quinten Tirado MD albuterol sulfate 90 mcg/actuation (Ventolin HFA) 2 puffs inhalation Q6H PRN triamcinolone acetonide 0.1% 1 appl topical BID Tobacco use date assessed: 12/10/24 Fall risk assessment: No Falls in past year Last assessed Fall Risk: 12/10/24 Dental Screening Dental Screen Date: 12/10/24 Did you have a dental visit in the last 12 months?: Yes Did you have a dental problem in the last 6 months where you did not have access to dental care?: No Was dental information given to patient?: Patient has dentist HPI HPI Comments History of Present Illness Details History of Present Illness The patient is a 64-year-old male presenting for follow-up on low testosterone and associated symptoms. Low testosterone: The patient's total testosterone was found to be low on recent lab work. He reports associated symptoms of fatigue and low sex drive. He notes experiencing significant stress related to his son's emotional problems. The patient also recalls having a bad experience with a steroid he took once for severe poison ranjeet, stating that it changed his body. Social History: - The patient reports feeling stressed d ue to his son staying with him. - He states his son has emotional proble ms, can be rodríguez, and has not worked in the 10 years since graduating from college. Family History: - The patient's son has emotional proble ms and can be rodríguez. Diagnostic Results: - Labs: Total testosterone is low. Past Medical History - Low testosterone. - History of severe poison ranjeet, for whic h he took one steroid and then stopped. Health Maintenance - The patient has pending follow-up for a pulmonary issue and imaging. - He has not yet followed up with a plas tic surgeon as previously discussed. - Ultrasounds have not yet been complete d. - Follow-up visit scheduled for February. [facility] Medical History (Updated 12/10/24 @ 09:05 by Quinten Tirado MD) Low testosterone Benign lipomatous neoplasm, unspecified Low libido Fatigue Shortness of breath on exertion Wheezing History of marijuana use Eczema Pain Lipoma Family History Father No problems noted. Mother Heart problem Social History Housing: House Alcohol intake: current Alcohol intake frequency: holidays/special occasions only Patient Tobacco Use Status: Never used Tobacco service: No Current occupational status: employed and retired Cognitive needs: No Hearing needs: No Vision needs: Yes (reading ) Questionnaire PHQ-9 Over the last 2 weeks, how often have you been bothered by any of the following problems? 1. Little interest or pleasure in doing things: several days 2. Feeling down, depressed, or hopeless: more than half the days 3. Trouble falling or staying asleep, or sleeping too much: not at all 4. Feeling tired or having little energy: nearly every day 5. Poor appetite or overeating: nearly every day 6. Feeling bad about yourself - or that you are a failure or have let yourself or your family down: more than half the days 7. Trouble concentrating on things, such as reading the newspaper or watching television: several days 8. Moving or speaking so slowly that other people could have noticed. Or the opposite - being so fidgety or restless that you have been moving around a lot more than usual: not at all 9. Thoughts that you would be better off or of hurting yourself in some way: several days Total score: 13 Source: Developed by Drs. Cipriano Bragg, Nikkie Hadley, Heath Shah and colleagues, with an educational laura from [employer]. Thrive Questionnaire Date Thrive assessed: 12/10/24 I am a: Patient What is your living situation today?: I have a place to live, but I am worried about losing it in the future Within the past 12 months, did the food you bought not last and you didn't have the money to get more?: Sometimes True Within the past 12 months, did you worry whether your food would run out before you got money to buy more?: Often true Do you have trouble paying for medicines?: Yes Do you have trouble getting transportation to medical appointments?: No Do you have trouble paying your heating and electricity bill?: Yes Do you have trouble taking care of your child, family member or friend?: Yes Do you have trouble with day-to-day activities such as bathing, preparing meals, shopping, managing finances, etc.?: Yes Are you currently unemployed and looking for a job?: I choose not to answer this question Are you interested in more education?: No Currently or been in a relationship where the following occur: No concerns repor grant THRIVE Score: 4 AUDIT C Alcohol Use Questionnaire (AUDIT-C) 1. How often do you have a drink containing alcohol?: Never 2. How many drinks containing alcohol do you have on a typical day when you are drinking?: 1 or 2 3. How often do you have six or more drinks on one occasion?: Never Total Score: 0 WILFRIDO-7 AMB Questionnaire WILFRIDO-7 Date WILFRIDO - 7 assessed: 12/10/24 Feeling nervous, anxious, or on edge: 2 = More than half the days Not being able to stop or control worryin = More than half the days Worrying too much about different things: 2 = More than half the days Trouble relaxin = More than half the days Being so restless that it is hard to sit still: 2 = More than half the days Becoming easily annoyed or irritable: 0 = Not at all Feeling afraid as if something awful might happen: 1 = Several days Total WILFRIDO-7 score (0-4 normal; 5-9 mild; 10-14 moderate; 15-21 severe): 11 Source: Developed by Drs. Cipriano Bragg, Nikkie Hadley, Heath Shah and colleagues, with an educational laura from [employer]. Review of Systems Narrative Review of Systems - General: Reports fatigue. - Endocrine/Genitourinary: Reports low sex drive. - Psychiatric: Reports feeling stressed. 10-point ROS reviewed and negative except as noted in HPI Physical exam (Primary Care) Vital Signs: Last Vital Signs Temp 98.4 F 12/10/24 08:45 Pulse 88 12/10/24 08:45 BP 112/77 10/31/25 08:45 Pulse Ox 94 12/10/24 08:45 Oxygen Delivery Method Room Air 12/10/24 08:45 BMI result Body Mass Index 34.5 Tobacco/Smoking Status: Tobacco use Status Tobacco use date assessed 12/10/24 12/10/24 08:47 Patient Tobacco Use Status Never used Tobacco 12/10/24 08:45 PHQ-9: PHQ-9 Score PHQ-9: Total score 13 12/10/24 08:47 Thrive Assessment: Date of Thrive Assessment Date Thrive assessed 12/10/24 12/10/24 08:47 Currently or been in a relationship where the following occur: No concerns reported Narrative Physical Exam General: Well-appearing, in no acute distress. Vital signs: Within normal limits. HEENT: Normocephalic, atraumatic. PERRLA, EOMI. Conjunctiva clear, sclera anicteric. Oropharynx clear, mucous membranes moist. TMs intact bilaterally. Neck: Supple, no lymphadenopathy, no thyromegaly, no JVD or carotid bruits. Cardiovascular: RRR, normal S1/S2, no murmurs, rubs, or gallops. Peripheral pulses 2+ and symmetric. No edema. Respiratory: Lungs clear to auscultation bilaterally, no wheezes, rales, or rhonchi. Normal effort. Abdomen: Soft, non-tender, non-distended. Normoactive bowel sounds. No hepatosplenomegaly, no masses. MSK: Full range of motion, no joint swelling or deformity. Normal gait. Skin: Warm, dry, intact. No rashes, lesions, or pallor. Neuro: Alert and oriented x3. Cranial nerves II-XII intact. Strength 5/5 throughout. Sensation intact. Reflexes 2+ symmetric. Normal coordination and gait. Psych: Appropriate mood and affect. Normal judgment and insight. Reports stress due to family issues and son's emotional problems. Office Procedures Flu Questionnaire Does the patient have a severe egg allergy?: No Does the patient have severe life threatening allergies?: No Does the patient have a fever or illness today?: No Has the patient ever had Guillain-[place] Syndrome?: No Has the patient ever had any past reaction to a flu shot?: No Immunizations Fluarix [id number] (PF) 45 mcg (15 mcg x 3)/0.5 mL IM syringe Performing Provider: Quinten Tirado MD Performing Location: [facility] Documented (not given) by: Rachael Parisi CMA on 12/10/24 08:57 Reason Not Given: Patient Refused Coding Level of Care Code Est Pt Level 3 (25851) Diagnoses Low testosterone R79.89 Low libido R68.82 Fatigue R53.83 Assessment & Plan Assessment & Plan (1) Low testosterone: Code(s): R79.89 - Other specified abnormal findings of blood chemistry Category: Medical (2) Low libido: Code(s): R68.82 - Decreased libido Category: Medical (3) Fatigue: Code(s): R53.83 - Other fatigue Category: Medical Plan Consent Patient was informed and verbally consented to the use of an ambient scribe for clinic note documentation during this visit. Plan 1. Low Testosterone - A referral to urology has been placed for management of low testosterone. - The specialist is Dr. Adams Bee. - The patient has been advised to call the urology office if he does not receive a call within two weeks. - Follow up in the office in February. Discussion Notes I reviewed the patient's lab results with him, confirming that his total testosterone is low. I explained that this is likely contributing to his symptoms of fatigue and low sex drive. I informed him that I am referring him to a specialist in urology, Dr. Adams Bee, for further evaluation and management, as this is a delicate matter. I advised him to contact the specialist's office if he doesn't hear from them within two weeks, and we scheduled a follow-up appointment in my office for February. Patient Instructions - We have sent a referral to a urology specialist, Dr. Adams Bee, to discuss your low testosterone. - If you do not get a call from the urology office within two weeks, please call them to make an appointment. - Please follow up on your pending appointments for the pulmonary clinic, imaging, and plastics surgery. - Please schedule a follow-up visit to see me in February. Medical Decision Making The patient is a 64-year-old male who presents for follow-up on laboratory results which show a low total testosterone level. This finding is consistent with his reported symptoms of fatigue and decreased libido. Given the specialized nature of testosterone replacement, a referral to a urologist is the most appropriate next step for further evaluation and management. A referral was placed to Dr. Adams Bee for this purpose. The patient will follow up with my office in February after his specialist consultation. Total time spent caring for the patient today was 20 minutes. This includes time spent before the visit reviewing the chart, time spent documenting, and time spent reviewing laboratory results, diagnostic imaging, medications, performing a medically necessary evaluation, counseling on diagnoses, care coordination.. Orders: Orders Influenza [id number] Immunization Today Z23 - Encounter for immunization Referrals Urology Referral R53.83 - Other fatigue, R68.82 - Decreased libido, R79.89 - Other specified abnormal findings of blood chemistry
--- OUTSIDE RECORDS SUMMARY | 2024-12-10 09:02 | XMS_ITS | Encounter Summary ---
Author Organization [place] [facility] Care Team Providers Care Salad Chef Name Role Phone Marquis Russell MD Primary Care Provider [phone] Encounter Details Date Type Department Care Team (Late st Contact Info) Description 07/10/2015 Abstract [facility] Primary Care [place] [address] [facility], [address] [place] [address] Provider, Historical . Social History Tobacco Use [...] on filedocumented in this encounter Care Teams Salad Chef Relationship Specialty Start Date End Date Marquis Russell MD [address] [place] [phone] PCP - General 06/29/15 documented as of this encounter
--- OUTSIDE RECORDS SUMMARY | 2024-12-10 09:02 | XMS_ITS | Encounter Summary ---
Author Organization [facility] Address [address] [place] [address] Care Team Providers Care Coal Digger Name Role Phone Pcp, No Unavailable Unavailable Percy Messer Primary Care Provider Encounter Details Date Type Department Care Team (Late st Contact Info) Description 01/26/2018 Scanned Document [address] [phone] Percy Messer PA [address] [place] [address] Social History Tobacco Use Types Packs/Day Years [...] on filedocumented in this encounter Care Teams Coal Digger Relationship Specialty Start Date End Date Percy Messer PA PCP - General Internal Medicine 09/19/16 Pcp, No General Medicine 07/12/16 documented as of this encounter
--- OUTSIDE RECORDS SUMMARY | 2024-12-10 09:02 | XMS_ITS | Clinical Summary ---
Author Organization [facility] Address [address] [place] [address] Care Team Providers Care Personal Financial Planner Name Role Phone Pcp, No Unavailable Unavailable Percy Messer Primary Care Provider [phone] Allergies No known active allergies Medications ibuprofen [...] complete this topic Insurance MEDICARE PART A [facility] TPL (AUTO/LIABILITY) [employer] MGD MEDICARE [facility] WORKER'S COMP ONE CALL MEDICAL ONE CALL MEDICAL Care Teams Personal Financial Planner Relationship Specialty Start Date End Date Percy Messer PA PCP - General Internal Medicine 09/19/16 Pcp, No General Medicine 07/12/16
--- OUTSIDE RECORDS SUMMARY | 2024-12-10 09:02 | XMS_ITS | Clinical Summary ---
Author Organization [address] Address [address] [place] [phone] Phone Care Team Providers Care Manager Market Research Name Role Phone Marquis Russell MD Primary Care Provider [phone] Social History Tobacco Use Types Packs/Day Years [...] topic Insurance [employer] [address] [place] [address] [address] [id number] Care Teams Manager Market Research Relationship Specialty Start Date End Date Marquis Russell MD [address] [place] [phone] PCP - General 06/29/15
== END 2024-12-10 09:08 | disposition home or self-care (01) ==
LOC: HO.HMCFMS 08:41
PROVIDERS: PCP Student in an Organized Health Care Education/Training Program; Visit Provider Student in an Organized Health Care Education/Training Program
DX: R79.89 Other specified abnormal findings of blood chemistry (principal); R68.82 Decreased libido; R53.83 Other fatigue; Z23 Encounter for immunization

== ENCOUNTER → 2024-12-10 08:41 | Outpatient (BNVA) | payer MEDICARE, SELFPAY | PROVIDERS: Visit Provider Student in an Organized Health Care Education/Training Program | DX: Z28.21 Immunization not carried out because of patient refusal (principal); R79.89 Other specified abnormal findings of blood chemistry; R68.82 Decreased libido; R53.83 Other fatigue | CPT/HCPCS: 90471; 96127; 99212 ==

== ENCOUNTER 2024-12-20 11:10 | Outpatient (AMB) | payer MEDICARE, SELFPAY ==
--- NOTE | 2024-12-20 11:11 | MHC.OFFVIS ---
Vital Signs 12/20/24 11:20 Height 6 ft 1.23 in Weight 266 lb 2 oz BMI 34.9 BP 110/73 Blood Pressure Location Lt brachial Position Sitting Pulse 56 Pulse Source Pulse Oximeter Intake Visit Reasons: painfull lipoma Intake Note: This patient was referred by Quinten Tirado for an assessment for painful lipoma. Pt c/o; reports he has several painful lipomas on the upper and lower extremities. English Professor Required: No Accompanied by: Self / Same As Patient Allergies No Known Allergies Allergy (Verified 12/20/24 11:23) Medication List - Last Reconciled 12/20/24 by Sudeep Hollis MD No Known Home Meds HPI HPI painfull lipoma: Details: 64-year-old male referred for multiple lipomas. He says that he has had many lipomas all his life. He says that he used to have them removed in [place]. However, his primary care physician now is in [place] and he was referred to me. He has multiple lipomas all over his body. He however wants to large lipomas from the left chest as well as left upper arm removed because of discomfort. He says he is healthy overall except for being obese. [facility] Medical History (Updated 12/20/24 @ 11:29 by Sudeep Hollis MD) Multiple lipomas Low testosterone Benign lipomatous neoplasm, unspecified Low libido Fatigue Shortness of breath on exertion Wheezing History of marijuana use Eczema Pain Lipoma Family History Father No problems noted. Mother Heart problem Social History Housing: House Alcohol intake: current Alcohol intake frequency: holidays/special occasions only Patient Tobacco Use Status: Never used Tobacco service: No Current occupational status: employed and retired Cognitive needs: No Hearing needs: No Vision needs: Yes (reading ) Review of Systems Const Denies chills and Denies fever(s) Card Denies chest pain, Denies dyspnea and Denies dyspnea on exertion Resp Denies cough, Denies dyspnea and Denies dyspnea on exertion GI Denies hematochezia and Denies change in bowel habits Denies hematuria and Denies difficulty urinating Musc Denies back pain and Denies limited range of motion Neuro Denies focal weakness and Denies convulsions Psych Denies depression and Denies mood swings Physical Exam Vital Signs: Last Vital Signs Pulse 56 12/20/24 11:20 BP 110/73 12/20/24 11:20 BMI result Body Mass Index 34.9 Const General: comfortable and no acute distress Orientation/consciousness: patient oriented x3 Neck Neck: Yes no lymphadenopathy Chest Other: Lipoma, about 3 cm in the left chest wall, well-defined Resp Auscultation: clear to auscultation bilaterally Cardio Rhythm: regular rhythm GI Palpation (GI): Soft to palpation, nontender and no guarding Neuro General: patient oriented x3 Extrem Other: Lipoma about 2.5 cm on the left upper arm well-defined mobile Assessment & Plan Assessment & Plan (1) Multiple lipomas: Code(s): D17.9 - Benign lipomatous neoplasm, unspecified Category: Medical Plan: He actually of many lipomas all over his body but he wants to lipomas removed. He has a 3 cm lipoma on the left chest wall and a 2.5 cm lipoma on the left upper arm. He understands the technique of excision of the 2 lipomas. He is aware of the risks including but not limited to bleeding, infections poor healing, as well as the benefits and alternatives. He understands what to expect postoperatively. He has given consent. Coding Level of Care Code New Pt Level 3 (51313) Diagnoses Multiple lipomas D17.9
[2024-12-20 11:20] VITALS: BP 110/73; PULSE 56; BMI 34.9
--- OUTSIDE RECORDS SUMMARY | 2024-12-20 13:30 | XMS_ITS | Encounter Summary ---
Author Organization [place] [facility] Care Team Providers Care President And Chief Commercial Officer Name Role Phone Marquis Russell MD Primary Care Provider [phone] Encounter Details Date Type Department Care Team (Late st Contact Info) Description 07/10/2015 Abstract [facility] Primary Care [place] [address] [facility], [address] [place] [address] Provider, Historical . Social History Tobacco Use [...] on filedocumented in this encounter Care Teams President And Chief Commercial Officer Relationship Specialty Start Date End Date Marquis Russell MD [address] [place] [phone] PCP - General 06/29/15 documented as of this encounter
--- OUTSIDE RECORDS SUMMARY | 2024-12-20 13:30 | XMS_ITS | Data Portability ---
Author Organization [place] [facility] [place] Address [address] [place] [address] Assessment Encounter Date Assessment Date Assessment LastModified [...] more view 2024 025 [email or web address] [facility], [address], [address], [place], [address], 16:45:57 CT, elbow, w/o contrast - Left elbow, moderate OA, evaluate joint osteophytes 2024 025 [email or web address] Not available 11:33:57 Medication Orders None recorded. Patient TargetsNo targets recorded. Patient InstructionsNo instructions recorded. Reason for Referral None Reported. Medical Equipment None Reported. Allergies No known drug allergies Medications Not known to be on any medication Vitals Date Recorded Body height Body mass index (BMI) Body weight Provider Name and Address Organization Details Last Updated DateTime 08/24/2024 187.96 cm 34.4 kg/m2 295197.[address] [place] [facility] 08/24/2024 09:20:05 Social History None recorded. Functional Status Question Answer Note LastModified by Organizat ion Details LastModified Time Do you use any illicit or recreational drugs? No [email or web address] Information not available 08/24/2024 Do you or have you ever used any other forms of tobacco or nicotine? No Information not available 08/24/2024 What is your level of alcohol consumption? None [email or web address] Information not available 08/24/2024 Mental Status None recorded. Family History Nothing Reported. Medical History No medical history recorded. Past Encounters Encounter ID Performer Location Encounter Start Date Encounter Closed Date Diagnosis/Indication Diagnosis SNOMED-CT Code Diagnosis ICD10 Code Diagnosis IMO Codes Diagnosis Note [id number] MD KAELA Aguirre [address] [phone] 08/24/2024 08:17:13 08/24/2024 09:07:04 Pain of elbow region 01973321 M25.522 525999 Health Concerns Section Related Observation LastModified by Organization Detai ls LastModified Time None Recorded Concern Status LastModified by Organization Details LastModified Time None Recorded Advance Directives Directive None Recorded Payers Insurance Date Sequence Insurance Name Policy Number Policy Charles Covered Member ID Charles Member ID Guarantor Name 08/18/2024 1 [employer] (PPO) [id number] Delio Kirkpatrick [id number] Delio Kirkpatrick 08/25/2024 1 [employer] (MEDICARE REPLACEMENT/ ADVANTAGE - PPO) [id number] Delio Kirkpatrick [id number] Delio Kirkpatrick Notes Date Note Type Note Provider Name and Address Organization Details Recorded Time 08/24/2024 text/html ROS as noted in the HPI 64-year-old [id number]-[id number] nt man presenting with left elbow pain for the past 2 years. He has dull pain pain with gripping and pulling. 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 He rates his pain at best 0 out of 10 at worst 8 out of 10. Denies any night symptoms. He has constant pain with activity is not able to dust rub things on the ground light lifting. Adams Vargas MD [address] [place] [address], [phone], [place] [facility] 08/24/2024 09:11:01
--- OUTSIDE RECORDS SUMMARY | 2024-12-20 13:30 | XMS_ITS | Clinical Summary ---
Author Organization [address] Address [address] [place] [phone] Phone Care Team Providers Care Senior Mortgage Loan Processor Name Role Phone Marquis Russell MD Primary Care Provider [phone] Social History Tobacco Use Types Packs/Day Years [...] topic Insurance [employer] [address] [place] [address] [address] [id number] Care Teams Senior Mortgage Loan Processor Relationship Specialty Start Date End Date Marquis Russell MD [address] [place] [phone] PCP - General 06/29/15
--- OUTSIDE RECORDS SUMMARY | 2024-12-20 13:30 | XMS_ITS | Clinical Summary ---
Author Organization [facility] Address [address] [place] [address] Care Team Providers Care Station Worker Name Role Phone Pcp, No Unavailable Unavailable Percy Messer Primary Care Provider [phone] Allergies No known active allergies Medications ibuprofen [...] complete this topic Insurance MEDICARE PART A [facility] TPL (AUTO/LIABILITY) AET[employer] MGD MEDICARE [facility] WORKER'S COMP ONE CALL MEDICAL ONE CALL MEDICAL Care Teams Station Worker Relationship Specialty Start Date End Date Percy Messer PA PCP - General Internal Medicine 09/19/16 Pcp, No General Medicine 07/12/16
--- OUTSIDE RECORDS SUMMARY | 2024-12-20 13:30 | XMS_ITS | Encounter Summary ---
Author Organization [facility] Address [address] [place] [address] Care Team Providers Care Executive Vice President And Chief Financial Officer Name Role Phone Pcp, No Unavailable Unavailable Percy Messer Primary Care Provider [phone] Encounter Details Date Type Department Care Team (Late st Contact Info) Description 01/26/2018 Scanned Document [address] [phone] Percy Messer PA [address] [place] [address] Social History Tobacco Use Types Packs/Day Years [...] on filedocumented in this encounter Care Teams Executive Vice President And Chief Financial Officer Relationship Specialty Start Date End Date Percy Messer PA PCP - General Internal Medicine 09/19/16 Pcp, No General Medicine 07/12/16 documented as of this encounter
== END 2024-12-20 11:31 | disposition home or self-care (01) ==
LOC: HO.HGS 11:10
PROVIDERS: PCP Student in an Organized Health Care Education/Training Program; Visit Provider Surgery
DX: D17.9 Benign lipomatous neoplasm, unspecified (principal)
CPT/HCPCS: 99203

== ENCOUNTER → 2024-12-20 11:10 | Outpatient (BNVA) | payer MEDICARE, SELFPAY | PROVIDERS: PCP Student in an Organized Health Care Education/Training Program; Visit Provider Surgery | DX: Z01.818 Encounter for other preprocedural examination (principal); D17.9 Benign lipomatous neoplasm, unspecified | CPT/HCPCS: 99202 ==